=== PATIENT | male | born 1950 | race Caucasian/White ===

== ENCOUNTER 2018-02-06 11:39 | Emergency (ER) | payer MEDICARE ==
[2018-02-06] MEDS ORDERED: Adacel (T-DAP) 0.5 ML VIAL ONE (12:04)
== END 2018-02-06 12:34 | disposition home or self-care (01) ==
LOC: BURERS 11:39
DX: S60.453A Superficial foreign body of left middle finger, initial encounter (principal); M10.9 Gout, unspecified; E03.9 Hypothyroidism, unspecified; J21.9 Acute bronchiolitis, unspecified; F32.9 Major depressive disorder, single episode, unspecified; Z79.899 Other long term (current) drug therapy; W45.8XXA Other foreign body or object entering through skin, initial encounter
CPT/HCPCS: 90471; 90715

== ENCOUNTER 2019-07-28 14:40 | Emergency (ER) | payer MEDICARE ==
[2019-07-28 15:31] LABS: ALT (SGPT) 42 U/L (8-55); AST (SGOT) 31 U/L (5-34); Albumin 4.3 g/dL (3.4-4.8); Alkaline Phosphatase 71 U/L (40-110); Anion Gap 13 mmol/L (10-20); BUN (Urea Nitrogen) 11 mg/dL (8.4-25.7); Bilirubin, Total 0.7 mg/dL (0.2-1.2); Calc. Creatinine Clearance 0 mL/min (70-130); Calcium 8.8 mg/dL (7.8-10.44); Carbon Dioxide 23 mmol/L (23-31); Chloride 108 mmol/L (98-107); Estimated GFR-MDRD 74; Globulin 2.2 g/dL (2.4-3.5); Glucose 108 mg/dL (80-115); Potassium 3.8 mmol/L (3.5-5.1); Protein, Total 6.5 g/dL (5.8-8.1); Sodium 140 mmol/L (136-145)
[2019-07-28 15:38] LABS: Hemoglobin 14.8 g/dL (14.0-18.0); Lymphocytes 63 % (21-51); MDiff Complete? YES; Mean Corpuscular HGB CONC 32.6 g/dL (32.0-36.0); Mean Corpuscular Hemoglobin 30.2 pg (27.0-31.0); Mean Corpuscular Volume 92.6 fL (78.0-98.0); Mean Platelet Volume 6.7 fL (7.4-10.4); Monocytes 1 % (0-10); Neutrophil 36 % (42-75); Platelet Count 128 thou/uL (130-400); RBC Distribution Width 12.9 % (11.5-14.5); Red Blood Cell (RBC) Count 4.89 mill/uL (4.70-6.10); White Blood Cell (WBC) Count 16.8 thou/uL (4.8-10.8)
== END 2019-07-28 15:59 | disposition home or self-care (01) ==
LOC: BURERS 14:40
DX: F15.93 Other stimulant use, unspecified with withdrawal (principal); K21.9 Gastro-esophageal reflux disease without esophagitis; F32.9 Major depressive disorder, single episode, unspecified; F41.9 Anxiety disorder, unspecified; Z79.899 Other long term (current) drug therapy
CPT/HCPCS: 36415; 80053; 83880; 84443; 84484; 85025; 93005

== ENCOUNTER 2019-10-09 21:52 | Emergency (ER) | payer MEDICARE ==
[2019-10-09] MEDS ORDERED: Sulfameth/Trimethoprim DS 800-160mg TAB ONE (22:27)
== END 2019-10-09 22:30 | disposition home or self-care (01) ==
LOC: BURERS 21:52
DX: S91.311A Laceration without foreign body, right foot, initial encounter (principal); W26.8XXA Contact with other sharp object(s), not elsewhere classified, initial encounter; K21.9 Gastro-esophageal reflux disease without esophagitis; F32.9 Major depressive disorder, single episode, unspecified; Z79.899 Other long term (current) drug therapy
CPT/HCPCS: 12002

== ENCOUNTER 2019-10-13 14:35 | Outpatient (CLI) | payer MEDICARE ==
--- NOTE | 2019-10-13 19:42 | RAD ---
LEFT SHOULDER THREE VIEWS: 10/13/19 No fracture, dislocation, or AC joint widening was seen. There are no significant arthritic changes. No periarticular calcifications were seen. IMPRESSION: No acute finding. POS: HOME
== END 2019-10-13 14:36 | disposition home or self-care (01) ==
LOC: BURRAD 14:35
PROVIDERS: ATTEND Family Medicine
DX: M21.922 Unspecified acquired deformity of left upper arm (principal)

== ENCOUNTER 2022-12-15 20:09 | Emergency (ER) | payer MEDICARE ==
[2022-12-15] MEDS ORDERED: cefTRIAXone (ROCEPHIN) 2 GM VIAL ONE (20:35)
[2022-12-15] MEDS ORDERED: Acetaminophen 325 MG TAB ONE (20:35)
[2022-12-15 20:40] LABS: Hemoglobin 13.8 g/dL (14.0-18.0); Mean Corpuscular HGB CONC 32.9 g/dL (32.0-36.0); Mean Corpuscular Hemoglobin 30.1 pg (27.0-31.0); Mean Corpuscular Volume 91.6 fl (78.0-98.0); Mean Platelet Volume 5.7 fL (7.4-10.4); Platelet Count 126 10x3/uL (130-400); RBC Distribution Width 12.9 % (11.5-14.5); Red Blood Cell (RBC) Count 4.59 mill/uL (4.70-6.10); White Blood Cell (WBC) Count 13.6 10x3/uL (4.8-10.8)
[2022-12-15 20:51] LABS: Lymphocytes 51 % (21-51); MDiff Complete? YES; Monocytes 2 % (0-10); Neutrophil 47 % (42-75); Platelet Adequacy Comment Appears Decreased
[2022-12-15 20:54] LABS: ALT (SGPT) 19 U/L (8-55); AST (SGOT) 18 U/L (5-34); Albumin 4.3 g/dL (3.4-4.8); Alkaline Phosphatase 77 U/L (40-110); Anion Gap 14 mmol/L (10-20); BUN (Urea Nitrogen) 16 mg/dL (8.4-25.7); Bilirubin, Total 0.7 mg/dL (0.2-1.2); Calc. Creatinine Clearance 0 mL/min (70-130); Calcium 8.9 mg/dL (7.8-10.44); Carbon Dioxide 23 mmol/L (23-31); Chloride 104 mmol/L (98-107); Estimated GFR 63; Globulin 2.3 g/dL (2.4-3.5); Glucose 144 mg/dL (83-110); Protein, Total 6.6 g/dL (5.8-8.1); Sodium 137 mmol/L (136-145)
[2022-12-15] MEDS ORDERED: Bacitracin 1 PK ONE (22:07)
[2022-12-15] MEDS ORDERED: Vancomycin 1 GM VIAL ONE (22:26)
[2022-12-15] MEDS ORDERED: Ibuprofen 200 MG TAB ONE (22:26)
[2022-12-16] MEDS ORDERED: Acetaminophen 500 MG TAB ONE (07:20)
[2022-12-16 07:31] LABS: Hemoglobin 12.9 g/dL (14.0-18.0); Mean Corpuscular HGB CONC 33.4 g/dL (32.0-36.0); Mean Corpuscular Hemoglobin 30.6 pg (27.0-31.0); Mean Corpuscular Volume 91.4 fl (78.0-98.0); Red Blood Cell (RBC) Count 4.22 mill/uL (4.70-6.10); White Blood Cell (WBC) Count 17.4 10x3/uL (4.8-10.8)
[2022-12-16 07:39] LABS: ALT (SGPT) 26 U/L (8-55); AST (SGOT) 24 U/L (5-34); Albumin 3.6 g/dL (3.4-4.8); Alkaline Phosphatase 72 U/L (40-110); Anion Gap 15 mmol/L (10-20); BUN (Urea Nitrogen) 14 mg/dL (8.4-25.7); Bilirubin, Total 1.2 mg/dL (0.2-1.2); Calc. Creatinine Clearance 0 mL/min (70-130); Calcium 8.4 mg/dL (7.8-10.44); Carbon Dioxide 20 mmol/L (23-31); Chloride 107 mmol/L (98-107); Estimated GFR 65; Glucose 113 mg/dL (83-110); Potassium 3.7 mmol/L (3.5-5.1); Protein, Total 5.6 g/dL (5.8-8.1); Sodium 138 mmol/L (136-145)
[2022-12-16 07:43] LABS: Band 6 % (5-11); Lymphocytes 21 % (21-51); MDiff Complete? YES; Mean Platelet Volume 6.1 fL (7.4-10.4); Monocytes 10 % (0-10); Neutrophil 63 % (42-75); Platelet Adequacy Comment Appears Decreased; Platelet Count 112 10x3/uL (130-400); RBC Distribution Width 12.6 % (11.5-14.5)
== END 2022-12-16 09:30 | disposition short-term general hospital (02) ==
LOC: BURERS 20:09
DX: A41.9 Sepsis, unspecified organism (principal); L08.9 Local infection of the skin and subcutaneous tissue, unspecified; I89.1 Lymphangitis; K21.9 Gastro-esophageal reflux disease without esophagitis
CPT/HCPCS: 36415; 80053; 83605; 85025; 87040; 96365; 96366; 96367; J0696; J3370

== ENCOUNTER 2024-03-15 16:17 | Outpatient (CLI) | payer MEDICARE | END 2024-03-15 16:18 | disposition home or self-care (01) | LOC: BURRAD 16:17 | PROVIDERS: ATTEND Family Medicine | DX: M79.645 Pain in left finger(s) (principal) ==